=== PATIENT | female | born 1965 | race Caucasian/White ===

== ENCOUNTER 2016-10-06 03:10 | Emergency (ER) | payer MEDICAID, OTHER ==
[~2016-10-06] VITALS: Ht 157.5 cm; Wt 68.2 kg
[~2016-10-06 03:10] MED LIST: ADV250 IH; CARB200T6 PO; DIVA500T35 PO; FERSL PO; FOLI1TAB15 PO; HYDR-3965 PO; HYDR25TA PO; IPRAHFA IH; LEVE500T53 PO; MULT-12 PO; NAPR-58 PO; NORE1TAB56 PO; ONDA4 PO; PRED20TA3 PO; QUET200T PO; RISP1 PO; THEO200T39 PO
[2016-10-06] MEDS ORDERED: BUSP15 PO (03:43)
[2016-10-06] MEDS ORDERED: LISI-662 PO (03:43)
[2016-10-06] MEDS ORDERED: LAMO100 PO (03:43)
[2016-10-06 04:39] LABS: BASOPHILS % (AUTO) 0.4 % (0.0-2.0); EOSINOPHILS % (AUTO) 0.7 % (1.0-6.0); HEMATOCRIT 44.1 % (36-46); HEMOGLOBIN 14.2 g/dL (12.0-16.0); LYMPHOCYTES # (AUTO) 2.4 K/uL (1.0-4.8); LYMPHOCYTES % (AUTO) 31.2 % (22.0-44.0); MEAN CORPUSCULAR HEMOGLOBIN 30.2 pg (26.0-34.0); MEAN CORPUSCULAR HGB CONC 32.1 G/dL (31.0-37.0); MEAN CORPUSCULAR VOLUME 94 fL (80-100); MONOCYTES % (AUTO) 13.3 % (2.0-9.0); NEUTROPHILS # (AUTO) 4.2 K/uL (1.8-7.7); NEUTROPHILS % (AUTO) 54.4 % (40.0-70.0); PLATELET COUNT (AUTO) 256 K/uL (150-450); RED BLOOD CELL COUNT(AUTO) 4.69 MIL/uL (4.00-5.20); RED CELL DISTRIBUTION WIDTH 14.2 % (11.5-14.5); WHITE BLOOD COUNT (AUTO) 7.7 K/uL (4.5-11.0)
[2016-10-06 04:50] LABS: ANION GAP 9 mmol/L (8-16); CALCIUM, TOTAL 8.5 mg/dL (8.8-10.5); CARBON DIOXIDE 28 mmol/L (22-29); CHLORIDE 101 mmol/L (98-107); CREATININE 0.59 mg/dL (0.60-1.30); GLOMERULAR FILTR. RATE CALC > 60 mL/min (>60); POTASSIUM 4.3 mmol/L (3.5-5.1); SODIUM SERUM 138 mmol/L (136-145); UREA NITROGEN, BLOOD 13 mg/dL (7-18)
[2016-10-06 04:57] LABS: ALANINE AMINOTRANSFERASE 16 U/L (12-78); ALBUMIN 2.9 g/dL (3.4-5.0); ASPARTATE AMINOTRANSFERASE 17 U/L (15-37); BILIRUBIN,TOTAL 0.2 mg/dL (0.1-1.0); TOTAL PROTEIN, SERUM 6.7 g/dL (6.4-8.2); VALPROIC ACID 97 mcg/mL (50-100)
[2016-10-06] MEDS ORDERED: LevETIRAcetam 1,000 MG in DEXTROSE 5%-WATER 100 ML IV ONE (05:00)
[2016-10-06 05:12] LABS: APPEARANCE,URINE CLEAR (CLEAR); GLUCOSE, URINE (UA) NEGATIVE (NEGATIVE); KETONES,URINE NEGATIVE (NEGATIVE); LEUKOCYTE ESTERASE ,URINE NEGATIVE (NEGATIVE); OCCULT BLOOD,URINE TRACE (NEGATIVE); PROTEIN,URINE NEGATIVE (NEGATIVE)
[2016-10-06 05:16] LABS: ADD UA MICROSCOPIC YES
[2016-10-06 05:25] LABS: RBC,URINE 0-2 /HPF (0-2); SQUAMOUS EPITHELIAL CELL,UR Few /LPF (None Seen); WBC,URINE None Seen /HPF (0-5)
[2016-10-06 09:35] VITALS: BP 93/55
== END 2016-10-06 11:09 | disposition home or self-care (01) ==
LOC: EMS 03:11
DX: G40.909 Epilepsy, unspecified, not intractable, without status epilepticus (principal); S00.83XA Contusion of other part of head, initial encounter; W19.XXXA Unspecified fall, initial encounter; Y93.89 Activity, other specified; Y92.89 Other specified places as the place of occurrence of the external cause; Y99.8 Other external cause status
CPT/HCPCS: 36415; 70450; 73110; 80053; 80156; 80164; 81001; 85025; 93005; 96365; 99285; J0712; J7060

== ENCOUNTER 2017-04-17 15:45 | Emergency (ER) | payer OTHER ==
[~2017-04-17] VITALS: Ht 154.9 cm; Wt 65.9 kg
[~2017-04-17 15:45] MED LIST changes: +BUSP15 PO; -HYDR25TA PO; -IPRAHFA IH; +LAMO100 PO; +LISI-662 PO
[2017-04-17 17:11] LABS: BASOPHILS % (AUTO) 0.2 % (0.0-2.0); EOSINOPHILS % (AUTO) 0 % (1.0-6.0); HEMATOCRIT 39.8 % (36-46); HEMOGLOBIN 13.4 g/dL (12.0-16.0); LYMPHOCYTES # (AUTO) 1.2 K/uL (1.0-4.8); LYMPHOCYTES % (AUTO) 9.3 % (22.0-44.0); MEAN CORPUSCULAR HEMOGLOBIN 31.8 pg (26.0-34.0); MEAN CORPUSCULAR HGB CONC 33.7 G/dL (31.0-37.0); MEAN CORPUSCULAR VOLUME 94 fL (80-100); MONOCYTES # (AUTO) 1.5 K/uL (0.1-1.0); MONOCYTES % (AUTO) 12.4 % (2.0-9.0); NEUTROPHILS # (AUTO) 9.7 K/uL (1.8-7.7); NEUTROPHILS % (AUTO) 78.1 % (40.0-70.0); PLATELET COUNT (AUTO) 248 K/uL (150-450); RED BLOOD CELL COUNT(AUTO) 4.22 MIL/uL (4.00-5.20); RED CELL DISTRIBUTION WIDTH 14.5 % (11.5-14.5); WHITE BLOOD COUNT (AUTO) 12.4 K/uL (4.5-11.0)
[2017-04-17 17:26] LABS: ANION GAP 6 mmol/L (8-16); CALCIUM, TOTAL 8.8 mg/dL (8.8-10.5); CARBON DIOXIDE 28 mmol/L (22-29); CHLORIDE 97 mmol/L (98-107); CREATININE 0.67 mg/dL (0.60-1.30); GLOMERULAR FILTR. RATE CALC > 60 mL/min (>60); POTASSIUM 3.8 mmol/L (3.5-5.1); SODIUM SERUM 131 mmol/L (136-145); UREA NITROGEN, BLOOD 10 mg/dL (7-18)
[2017-04-17 17:34] LABS: ALANINE AMINOTRANSFERASE 15 U/L (12-78); ALBUMIN 3.5 g/dL (3.4-5.0); ASPARTATE AMINOTRANSFERASE 16 U/L (15-37); BILIRUBIN,TOTAL 0.2 mg/dL (0.1-1.0); TOTAL PROTEIN, SERUM 7.1 g/dL (6.4-8.2); VALPROIC ACID 40 mcg/mL (50-100)
[2017-04-17] MEDS ORDERED: LevETIRAcetam 1,000 MG in DEXTROSE 5%-WATER 100 ML IV ONE (20:30)
[2017-04-17 21:54] VITALS: BP 117/64
[2017-04-20 07:31] LABS: KEPPRA (LEVETIRACETAM) LEVEL 13.9 ug/mL (10.0-40.0)
[2017-04-20 12:48] LABS: LAMOTRIGINE (LAMICTAL) LEVEL 7.1 ug/mL (2.0-20.0)
== END 2017-04-17 22:25 | disposition home or self-care (01) ==
LOC: EMS 15:46
DX: G40.909 Epilepsy, unspecified, not intractable, without status epilepticus (principal); Z79.899 Other long term (current) drug therapy
CPT/HCPCS: 36415; 70450; 80053; 80156; 80164; 80175; 85025; 96365; 99285; G0482; J0712; J7060

== ENCOUNTER 2018-01-21 22:36 | Emergency (ER) | payer OTHER ==
[~2018-01-21] VITALS: Ht 147.3 cm; Wt 62.0 kg
[~2018-01-21 22:36] MED LIST changes: +FERR-89 PO; -FERSL PO; -HYDR-3965 PO; -LISI-662 PO; -MULT-12 PO; -NORE1TAB56 PO; -ONDA4 PO
[2018-01-21] MEDS ORDERED: MIRT15 PO (22:47)
[2018-01-22 00:26] LABS: APPEARANCE,URINE CLEAR (CLEAR); BILIRUBIN,URINE NEGATIVE (NEGATIVE); GLUCOSE, URINE (UA) NEGATIVE (NEGATIVE); KETONES,URINE NEGATIVE (NEGATIVE); LEUKOCYTE ESTERASE ,URINE NEGATIVE (NEGATIVE); NITRATE,URINE NEGATIVE (NEGATIVE); OCCULT BLOOD,URINE NEGATIVE (NEGATIVE); PH,URINE 5.5 (5.0-8.0); PROTEIN,URINE NEGATIVE (NEGATIVE); UROBILINOGEN,URINE 0.2 mg/dL (<=1.0)
[2018-01-22] MEDS ORDERED: SODIUM CHLORIDE 0.9% 1,000 ML IV ONE (00:30)
[2018-01-22 02:20] VITALS: BP 94/57
== END 2018-01-22 02:21 | disposition home or self-care (01) ==
LOC: EMS 22:38
DX: R40.0 Somnolence (principal); R53.1 Weakness; T43.595A Adverse effect of other antipsychotics and neuroleptics, initial encounter; F41.9 Anxiety disorder, unspecified; G61.0 Guillain-Barre syndrome; Y92.89 Other specified places as the place of occurrence of the external cause; Z79.899 Other long term (current) drug therapy
CPT/HCPCS: 96360; 99284

== ENCOUNTER 2018-02-04 10:25 | Inpatient (IN) | payer MEDICAID, OTHER ==
[~2018-02-04] VITALS: Ht 157.5 cm; Wt 60.1 kg
[~2018-02-04 10:25] MED LIST changes: +MIRT15 PO
[2018-02-04] MEDS ORDERED: LORazepam 1 MG TABLET PO ONE (11:00)
[2018-02-04 12:53] LABS: BASOPHILS % (AUTO) 0.5 % (0.0-2.0); EOSINOPHILS % (AUTO) 1.5 % (1.0-6.0); HEMATOCRIT 34.7 % (36-46); HEMOGLOBIN 11.8 g/dL (12.0-16.0); LYMPHOCYTES # (AUTO) 1.6 K/uL (1.0-4.8); LYMPHOCYTES % (AUTO) 25.6 % (22.0-44.0); MEAN CORPUSCULAR HEMOGLOBIN 30.6 pg (26.0-34.0); MEAN CORPUSCULAR HGB CONC 34.1 G/dL (31.0-37.0); MEAN CORPUSCULAR VOLUME 90 fL (80-100); MONOCYTES # (AUTO) 0.8 K/uL (0.1-1.0); MONOCYTES % (AUTO) 13.2 % (2.0-9.0); NEUTROPHILS # (AUTO) 3.7 K/uL (1.8-7.7); NEUTROPHILS % (AUTO) 59.2 % (40.0-70.0); PLATELET COUNT (AUTO) 205 K/uL (150-450); RED BLOOD CELL COUNT(AUTO) 3.87 MIL/uL (4.00-5.20); RED CELL DISTRIBUTION WIDTH 13.3 % (11.5-14.5)
[2018-02-04 13:18] LABS: ANION GAP 4 mmol/L (8-16); CALCIUM, TOTAL 8.7 mg/dL (8.8-10.5); CARBON DIOXIDE 30 mmol/L (22-29); CHLORIDE 107 mmol/L (98-107); CREATININE 0.51 mg/dL (0.60-1.30); GLOMERULAR FILTR. RATE CALC > 60 mL/min (>60); GLUCOSE,RANDOM 86 mg/dL (70-110); POTASSIUM 3.9 mmol/L (3.5-5.1); SODIUM SERUM 141 mmol/L (136-145); UREA NITROGEN, BLOOD 24 mg/dL (7-18)
[2018-02-04 13:26] LABS: ALANINE AMINOTRANSFERASE 22 U/L (12-78); ALBUMIN 3.1 g/dL (3.4-5.0); ALKALINE PHOSPHATASE 91 U/L (46-116); ASPARTATE AMINOTRANSFERASE 22 U/L (15-37); BILIRUBIN,TOTAL 0.3 mg/dL (0.1-1.0); TOTAL PROTEIN, SERUM 6.2 g/dL (6.4-8.2); VALPROIC ACID 43 mcg/mL (50-100)
[2018-02-04] MEDS ORDERED: QUEtiapine FUMARATE 100 MG TABLET PO PRN (15:45)
[2018-02-04] MEDS ORDERED: HALOPERIDOL 5 MG TABLET PO PRN (16:15)
[2018-02-04] MEDS ORDERED: QUEtiapine FUMARATE 200 MG TABLET PO SCH (21:00)
[2018-02-04] MEDS: OLANZapine 5 MG TABLET PO SCH (21:01)
[2018-02-04] MEDS: MIRTAZAPINE 15 MG TABLET PO SCH (21:01)
[2018-02-04] MEDS: BusPIRone HCL 15 MG TABLET PO SCH (21:40)
[2018-02-04 22:18] VITALS: BP 142/72
[2018-02-05 07:17] LABS: CHOL/HDL RATIO 2.4 (3.9-5.7)
[2018-02-05 08:50] VITALS: BP 131/100
[2018-02-05] MEDS: LevETIRAcetam 500 MG TABLET PO SCH ×2 (08:53→18:00)
[2018-02-05] MEDS: BusPIRone HCL 15 MG TABLET PO SCH ×2 (08:53→18:00)
[2018-02-05] MEDS: CarBAMazepine 200 MG TABLET PO SCH ×2 (08:55→18:00)
[2018-02-05] MEDS: OLANZapine 5 MG TABLET PO SCH ×2 (08:55→18:00)
[2018-02-05] MEDS: LISINOPRIL 20 MG TABLET PO SCH (08:55)
[2018-02-05] MEDS: LamoTRIgine 100 MG TABLET PO SCH ×2 (08:55→18:00)
[2018-02-05] MEDS ORDERED: QUEtiapine FUMARATE 100 MG TABLET PO SCH (09:00)
[2018-02-05] MEDS ORDERED: IBUPROFEN 400 MG TABLET PO PRN (16:15)
[2018-02-05] MEDS ORDERED: ACETAMINOPHEN 325 MG TABLET PO PRN (16:15)
[2018-02-05 20:06] VITALS: BP 113/66
[2018-02-05] MEDS: MIRTAZAPINE 15 MG TABLET PO SCH (20:24)
[2018-02-06] MEDS: FERROUS SULFATE 325 MG EC TABLET PO SCH (06:40)
[2018-02-06] MEDS: LISINOPRIL 20 MG TABLET PO SCH (09:22)
[2018-02-06] MEDS: FOLIC ACID 1 MG TABLET PO SCH (09:23)
[2018-02-06] MEDS: BusPIRone HCL 15 MG TABLET PO SCH ×2 (09:23→17:30)
[2018-02-06] MEDS: LamoTRIgine 100 MG TABLET PO SCH ×2 (09:23→17:30)
[2018-02-06] MEDS: CarBAMazepine 200 MG TABLET PO SCH ×2 (09:23→17:30)
[2018-02-06] MEDS: LevETIRAcetam 500 MG TABLET PO SCH ×2 (09:24→17:30)
[2018-02-06] MEDS: FLUTICASONE/VILANTEROL 200-25 MCG/INH INHALER [14] IH SCH (09:25)
[2018-02-06] MEDS: PredniSONE 20 MG TABLET PO SCH (09:26)
[2018-02-06] MEDS: OLANZapine 5 MG TABLET PO SCH ×2 (09:28→17:30)
[2018-02-06 10:24] VITALS: BP 109/53
[2018-02-06 20:11] VITALS: BP 116/67
[2018-02-06] MEDS: MIRTAZAPINE 15 MG TABLET PO SCH (20:57)
[2018-02-07] MEDS: FERROUS SULFATE 325 MG EC TABLET PO SCH (07:01)
[2018-02-07 08:32] VITALS: BP 145/76
[2018-02-07] MEDS: PredniSONE 20 MG TABLET PO SCH (08:38)
[2018-02-07] MEDS: BusPIRone HCL 15 MG TABLET PO SCH ×2 (08:38→17:19)
[2018-02-07] MEDS: LamoTRIgine 100 MG TABLET PO SCH ×2 (08:38→17:19)
[2018-02-07] MEDS: LevETIRAcetam 500 MG TABLET PO SCH ×2 (08:38→17:20)
[2018-02-07] MEDS: OLANZapine 5 MG TABLET PO SCH ×2 (08:38→17:20)
[2018-02-07] MEDS: CarBAMazepine 200 MG TABLET PO SCH ×2 (08:39→17:21)
[2018-02-07] MEDS: FOLIC ACID 1 MG TABLET PO SCH (08:39)
[2018-02-07] MEDS: FLUTICASONE/VILANTEROL 200-25 MCG/INH INHALER [14] IH SCH (08:40)
[2018-02-07] MEDS: LISINOPRIL 20 MG TABLET PO SCH (08:40)
[2018-02-07 16:26] VITALS: BP 112/67
[2018-02-07] MEDS: MIRTAZAPINE 15 MG TABLET PO SCH (20:44)
[2018-02-08] MEDS: FERROUS SULFATE 325 MG EC TABLET PO SCH (07:02)
[2018-02-08 08:10] VITALS: BP 128/60
[2018-02-08] MEDS: FLUTICASONE/VILANTEROL 200-25 MCG/INH INHALER [14] IH SCH (09:35)
[2018-02-08] MEDS: LISINOPRIL 20 MG TABLET PO SCH (09:36)
[2018-02-08] MEDS: CarBAMazepine 200 MG TABLET PO SCH ×2 (09:36→18:32)
[2018-02-08] MEDS: FOLIC ACID 1 MG TABLET PO SCH (09:36)
[2018-02-08] MEDS: LevETIRAcetam 500 MG TABLET PO SCH ×2 (09:36→18:31)
[2018-02-08] MEDS: PredniSONE 20 MG TABLET PO SCH (09:36)
[2018-02-08] MEDS: BusPIRone HCL 15 MG TABLET PO SCH ×2 (09:37→18:29)
[2018-02-08] MEDS: LamoTRIgine 100 MG TABLET PO SCH ×2 (09:37→18:30)
[2018-02-08] MEDS: OLANZapine 5 MG TABLET PO SCH ×2 (09:38→18:31)
[2018-02-08 16:00] VITALS: BP 122/64
[2018-02-08] MEDS: MIRTAZAPINE 15 MG TABLET PO SCH (20:10)
[2018-02-09 00:49] LABS: APPEARANCE,URINE CLEAR (CLEAR); BILIRUBIN,URINE NEGATIVE (NEGATIVE); GLUCOSE, URINE (UA) NEGATIVE (NEGATIVE); KETONES,URINE NEGATIVE (NEGATIVE); LEUKOCYTE ESTERASE ,URINE TRACE (NEGATIVE); NITRATE,URINE NEGATIVE (NEGATIVE); OCCULT BLOOD,URINE NEGATIVE (NEGATIVE); PH,URINE 6.5 (5.0-8.0); PROTEIN,URINE NEGATIVE (NEGATIVE); UROBILINOGEN,URINE 0.2 mg/dL (<=1.0)
[2018-02-09 00:53] LABS: AMPHET/METH SCREEN,URINE NEGATIVE (NEGATIVE); BARBITURATE SCREEN, URINE NEGATIVE (NEGATIVE); BENZODIAZEPINES SCREEN,URINE NEGATIVE (NEGATIVE); CANNABINOID SCREEN,URINE NEGATIVE (NEGATIVE); COCAINE SCREEN,URINE NEGATIVE (NEGATIVE); METHADONE SCREEN, URINE NEGATIVE (NEGATIVE); OPIATE SCREEN,URINE NEGATIVE (NEGATIVE)
[2018-02-09 00:54] LABS: PHENCYCLIDINE SCREEN,URINE NEGATIVE (NEGATIVE)
[2018-02-09 01:05] LABS: BACTERIA,URINE None Seen /HPF (None Seen); RBC,URINE None Seen /HPF (0-2); WBC,URINE 0-2 /HPF (0-5)
[2018-02-09] MEDS: LORazepam 2 MG TABLET PO PRN ×2 (02:11→18:10)
[2018-02-09] MEDS: ZOLPIDEM TARTRATE 10 MG TABLET PO PRN (02:12)
[2018-02-09 02:27] VITALS: BP 122/86
[2018-02-09] MEDS: FERROUS SULFATE 325 MG EC TABLET PO SCH (07:00)
[2018-02-09] MEDS: FLUTICASONE/VILANTEROL 200-25 MCG/INH INHALER [14] IH SCH (09:11)
[2018-02-09] MEDS: LevETIRAcetam 500 MG TABLET PO SCH ×2 (09:11→18:09)
[2018-02-09] MEDS: LISINOPRIL 20 MG TABLET PO SCH (09:12)
[2018-02-09] MEDS: FOLIC ACID 1 MG TABLET PO SCH (09:12)
[2018-02-09] MEDS: CarBAMazepine 200 MG TABLET PO SCH ×2 (09:12→18:11)
[2018-02-09] MEDS: PredniSONE 20 MG TABLET PO SCH (09:13)
[2018-02-09] MEDS: BusPIRone HCL 15 MG TABLET PO SCH ×2 (09:13→18:09)
[2018-02-09] MEDS: OLANZapine 5 MG TABLET PO SCH (09:13)
[2018-02-09] MEDS: LamoTRIgine 100 MG TABLET PO SCH ×2 (09:14→18:10)
[2018-02-09 13:01] VITALS: BP 100/60
[2018-02-09 16:30] VITALS: BP 102/63
[2018-02-09] MEDS: OLANZapine 7.5 MG TABLET PO SCH (18:10)
[2018-02-09] MEDS: MIRTAZAPINE 15 MG TABLET PO SCH (20:33)
[2018-02-10] MEDS: ZOLPIDEM TARTRATE 10 MG TABLET PO PRN ×2 (01:38→23:26)
[2018-02-10] MEDS: LORazepam 2 MG TABLET PO PRN ×2 (01:38→23:26)
[2018-02-10] MEDS: FERROUS SULFATE 325 MG EC TABLET PO SCH (06:46)
[2018-02-10 08:00] VITALS: BP 128/72
[2018-02-10] MEDS: FOLIC ACID 1 MG TABLET PO SCH (09:14)
[2018-02-10] MEDS: PredniSONE 20 MG TABLET PO SCH (09:14)
[2018-02-10] MEDS: LevETIRAcetam 500 MG TABLET PO SCH ×2 (09:14→16:35)
[2018-02-10] MEDS: CarBAMazepine 200 MG TABLET PO SCH ×2 (09:15→16:35)
[2018-02-10] MEDS: LamoTRIgine 100 MG TABLET PO SCH ×2 (09:15→16:35)
[2018-02-10] MEDS: LISINOPRIL 20 MG TABLET PO SCH (09:15)
[2018-02-10] MEDS: BusPIRone HCL 15 MG TABLET PO SCH ×2 (09:16→16:35)
[2018-02-10] MEDS: OLANZapine 7.5 MG TABLET PO SCH ×2 (09:16→16:35)
[2018-02-10] MEDS: FLUTICASONE/VILANTEROL 200-25 MCG/INH INHALER [14] IH SCH (09:18)
[2018-02-10 16:30] VITALS: BP 96/72
[2018-02-10 18:05] VITALS: BP 100/68
[2018-02-10] MEDS: MIRTAZAPINE 15 MG TABLET PO SCH (20:27)
[2018-02-11] MEDS: FERROUS SULFATE 325 MG EC TABLET PO SCH (07:02)
[2018-02-11] MEDS: PredniSONE 20 MG TABLET PO SCH (10:58)
[2018-02-11] MEDS: LevETIRAcetam 500 MG TABLET PO SCH ×2 (10:58→18:06)
[2018-02-11] MEDS: LISINOPRIL 20 MG TABLET PO SCH (10:58)
[2018-02-11] MEDS: FOLIC ACID 1 MG TABLET PO SCH (10:58)
[2018-02-11] MEDS: OLANZapine 7.5 MG TABLET PO SCH ×2 (10:58→18:06)
[2018-02-11] MEDS: LamoTRIgine 100 MG TABLET PO SCH ×2 (10:59→18:04)
[2018-02-11] MEDS: CarBAMazepine 200 MG TABLET PO SCH ×2 (10:59→18:07)
[2018-02-11] MEDS: BusPIRone HCL 15 MG TABLET PO SCH ×2 (11:01→18:04)
[2018-02-11] MEDS: FLUTICASONE/VILANTEROL 200-25 MCG/INH INHALER [14] IH SCH (11:01)
[2018-02-11 13:08] VITALS: BP 96/66
[2018-02-11 16:05] VITALS: BP 115/75
[2018-02-11] MEDS: LORazepam 2 MG TABLET PO PRN (18:06)
[2018-02-11 19:05] VITALS: BP 122/68
[2018-02-11 19:45] VITALS: BP 120/82
[2018-02-11] MEDS: MIRTAZAPINE 15 MG TABLET PO SCH (20:53)
[2018-02-11 21:45] VITALS: BP 118/68
[2018-02-12] MEDS: FERROUS SULFATE 325 MG EC TABLET PO SCH (07:03)
[2018-02-12] MEDS: FOLIC ACID 1 MG TABLET PO SCH (09:35)
[2018-02-12] MEDS: PredniSONE 20 MG TABLET PO SCH (09:35)
[2018-02-12] MEDS: OLANZapine 7.5 MG TABLET PO SCH ×2 (09:35→16:52)
[2018-02-12] MEDS: BusPIRone HCL 15 MG TABLET PO SCH ×2 (09:36→16:52)
[2018-02-12] MEDS: LISINOPRIL 20 MG TABLET PO SCH (09:36)
[2018-02-12] MEDS: CarBAMazepine 200 MG TABLET PO SCH ×2 (09:36→16:52)
[2018-02-12] MEDS: FLUTICASONE/VILANTEROL 200-25 MCG/INH INHALER [14] IH SCH (09:37)
[2018-02-12] MEDS: LamoTRIgine 100 MG TABLET PO SCH ×2 (09:37→16:51)
[2018-02-12] MEDS: LevETIRAcetam 250 MG TABLET PO SCH ×2 (09:44→16:51)
[2018-02-12 10:14] VITALS: BP 110/60
[2018-02-12 17:49] VITALS: BP 104/71
[2018-02-12] MEDS: MIRTAZAPINE 15 MG TABLET PO SCH (20:13)
[2018-02-12] MEDS: ZOLPIDEM TARTRATE 10 MG TABLET PO PRN (22:30)
[2018-02-13] MEDS: FERROUS SULFATE 325 MG EC TABLET PO SCH (06:36)
[2018-02-13] MEDS: LevETIRAcetam 250 MG TABLET PO SCH ×2 (08:37→17:01)
[2018-02-13] MEDS: FOLIC ACID 1 MG TABLET PO SCH (08:37)
[2018-02-13] MEDS: LISINOPRIL 20 MG TABLET PO SCH (08:37)
[2018-02-13] MEDS: PredniSONE 20 MG TABLET PO SCH (08:37)
[2018-02-13] MEDS: FLUTICASONE/VILANTEROL 200-25 MCG/INH INHALER [14] IH SCH (08:37)
[2018-02-13] MEDS: CarBAMazepine 200 MG TABLET PO SCH ×2 (08:38→16:11)
[2018-02-13] MEDS: OLANZapine 7.5 MG TABLET PO SCH ×2 (08:38→16:11)
[2018-02-13] MEDS: BusPIRone HCL 15 MG TABLET PO SCH ×2 (08:38→16:10)
[2018-02-13] MEDS: LamoTRIgine 100 MG TABLET PO SCH ×2 (08:38→16:11)
[2018-02-13 08:39] VITALS: BP 124/72
[2018-02-13 16:35] VITALS: BP 142/61
[2018-02-13] MEDS: ZOLPIDEM TARTRATE 10 MG TABLET PO PRN (20:08)
[2018-02-13] MEDS: MIRTAZAPINE 15 MG TABLET PO SCH (20:08)
[2018-02-13] MEDS ORDERED: LevETIRAcetam 500 MG TABLET PO SCH (21:00)
[2018-02-13] MEDS ORDERED: PHENYTOIN 100 MG/4 ML SUSPENSION UDCUP PO SCH (21:00)
[2018-02-14] MEDS: FERROUS SULFATE 325 MG EC TABLET PO SCH (07:05)
[2018-02-14 08:46] VITALS: BP 107/76
[2018-02-14] MEDS: FLUTICASONE/VILANTEROL 200-25 MCG/INH INHALER [14] IH SCH (08:54)
[2018-02-14] MEDS: CarBAMazepine 200 MG TABLET PO SCH ×2 (08:55→16:49)
[2018-02-14] MEDS: LevETIRAcetam 500 MG TABLET PO SCH ×2 (08:55→16:48)
[2018-02-14] MEDS: LISINOPRIL 20 MG TABLET PO SCH (08:56)
[2018-02-14] MEDS: PredniSONE 20 MG TABLET PO SCH (08:56)
[2018-02-14] MEDS: OLANZapine 7.5 MG TABLET PO SCH ×2 (08:57→16:49)
[2018-02-14] MEDS: FOLIC ACID 1 MG TABLET PO SCH (08:57)
[2018-02-14] MEDS: BusPIRone HCL 15 MG TABLET PO SCH ×2 (08:57→16:47)
[2018-02-14] MEDS: LamoTRIgine 100 MG TABLET PO SCH ×2 (08:58→16:48)
[2018-02-14 16:17] VITALS: BP 113/64
[2018-02-14] MEDS: MIRTAZAPINE 15 MG TABLET PO SCH (21:07)
[2018-02-15] MEDS: ZOLPIDEM TARTRATE 10 MG TABLET PO PRN (00:58)
[2018-02-15 01:26] VITALS: BP 111/67
[2018-02-15] MEDS: FERROUS SULFATE 325 MG EC TABLET PO SCH ×2 (07:03→07:05)
[2018-02-15] MEDS: BusPIRone HCL 15 MG TABLET PO SCH (08:01)
[2018-02-15] MEDS: LamoTRIgine 100 MG TABLET PO SCH (08:01)
[2018-02-15] MEDS: FLUTICASONE/VILANTEROL 200-25 MCG/INH INHALER [14] IH SCH (08:01)
[2018-02-15] MEDS: LevETIRAcetam 500 MG TABLET PO SCH (08:06)
[2018-02-15] MEDS: PredniSONE 20 MG TABLET PO SCH (08:06)
[2018-02-15] MEDS: FOLIC ACID 1 MG TABLET PO SCH (08:07)
[2018-02-15] MEDS: LISINOPRIL 20 MG TABLET PO SCH (08:07)
[2018-02-15] MEDS: CarBAMazepine 200 MG TABLET PO SCH (08:07)
[2018-02-15] MEDS: OLANZapine 7.5 MG TABLET PO SCH (08:07)
[2018-02-15 08:08] VITALS: BP 118/57
[2018-02-15] MEDS ORDERED: FLUT1BLS IH (14:13)
[2018-02-15] MEDS ORDERED: LISI-662 PO (14:15)
[2018-02-15] MEDS ORDERED: OLAN7.5T2 PO (14:18)
== END 2018-02-15 15:40 | DRG 750 ==
LOC: EMS 10:27 → 3EC 19:16
PROVIDERS: ADMIT Psychiatry & Neurology Psychiatry; ATTEND Psychiatry & Neurology Psychiatry
DX: F25.1 Schizoaffective disorder, depressive type (principal); G61.0 Guillain-Barre syndrome; E88.09 Other disorders of plasma-protein metabolism, not elsewhere classified; G40.409 Other generalized epilepsy and epileptic syndromes, not intractable, without status epilepticus; F70 Mild intellectual disabilities; D64.9 Anemia, unspecified; F41.9 Anxiety disorder, unspecified; J44.9 Chronic obstructive pulmonary disease, unspecified; Z79.899 Other long term (current) drug therapy; Z91.5 Personal history of self-harm
CPT/HCPCS: 84443; 87081; 99285; G0480; G0482

== ENCOUNTER 2018-11-03 11:59 | Emergency (ER) | payer MEDICAID, OTHER ==
[~2018-11-03] VITALS: Ht 162.6 cm; Wt 58.2 kg
[~2018-11-03 11:59] MED LIST changes: -ADV250 IH; -DIVA500T35 PO; +FLUT1BLS IH; +LISI-662 PO; -NAPR-58 PO; +OLAN7.5T2 PO; -QUET200T PO; -RISP1 PO; -THEO200T39 PO
[2018-11-03] MEDS ORDERED: IBUPROFEN 600 MG TABLET PO ONE (12:15)
[2018-11-03 12:21] LABS: BASOPHILS % (AUTO) 0.4 % (0.0-2.0); EOSINOPHILS % (AUTO) 1.6 % (1.0-6.0); HEMATOCRIT 38.1 % (36-46); HEMOGLOBIN 12.9 g/dL (12.0-16.0); LYMPHOCYTES % (AUTO) 26.6 % (22.0-44.0); MEAN CORPUSCULAR HEMOGLOBIN 28.8 pg (26.0-34.0); MEAN CORPUSCULAR HGB CONC 33.9 G/dL (31.0-37.0); MEAN CORPUSCULAR VOLUME 85 fL (80-100); MONOCYTES # (AUTO) 0.6 K/uL (0.1-1.0); MONOCYTES % (AUTO) 8.5 % (2.0-9.0); NEUTROPHILS # (AUTO) 4.6 K/uL (1.8-7.7); NEUTROPHILS % (AUTO) 62.9 % (40.0-70.0); PLATELET COUNT (AUTO) 281 K/uL (150-450); RED BLOOD CELL COUNT(AUTO) 4.48 MIL/uL (4.00-5.20); RED CELL DISTRIBUTION WIDTH 13.4 % (11.5-14.5)
[2018-11-03] MEDS ORDERED: THEO400T3 PO (12:29)
[2018-11-03] MEDS ORDERED: CLIN1KIT TP (12:29)
[2018-11-03] MEDS ORDERED: DIVA-78 PO (12:29)
[2018-11-03] MEDS ORDERED: NORE1TAB4 PO (12:29)
[2018-11-03] MEDS ORDERED: ADV100 IH (12:29)
[2018-11-03] MEDS ORDERED: IPRAHFA IH (12:29)
[2018-11-03] MEDS ORDERED: PHEN100C23 PO (12:29)
[2018-11-03] MEDS ORDERED: RISP1 PO (12:29)
[2018-11-03] MEDS ORDERED: HYDR25TA PO (12:29)
[2018-11-03] MEDS ORDERED: NAPR-58 PO (12:29)
[2018-11-03] MEDS ORDERED: QUET200T PO (12:29)
[2018-11-03 12:52] LABS: ANION GAP 9 mmol/L (8-16); CALCIUM, TOTAL 9.3 mg/dL (8.8-10.5); CARBON DIOXIDE 28 mmol/L (22-29); CHLORIDE 100 mmol/L (98-107); GLOMERULAR FILTR. RATE CALC > 60 mL/min (>60); GLUCOSE,RANDOM 96 mg/dL (70-110); POTASSIUM 4.1 mmol/L (3.5-5.1); SODIUM SERUM 137 mmol/L (136-145); UREA NITROGEN, BLOOD 16 mg/dL (7-18)
[2018-11-03 12:59] LABS: ALANINE AMINOTRANSFERASE 15 U/L (12-78); ALBUMIN 3.4 g/dL (3.4-5.0); ALKALINE PHOSPHATASE 195 U/L (46-116); ASPARTATE AMINOTRANSFERASE 14 U/L (15-37); BILIRUBIN,TOTAL 0.2 mg/dL (0.1-1.0)
[2018-11-03 13:24] LABS: VALPROIC ACID < 3 mcg/mL (50-100)
[2018-11-03] MEDS ORDERED: VALPROATE SODIUM 1,000 MG in DEXTROSE 5%-WATER 100 ML IV ONE (14:15)
[2018-11-03 14:34] LABS: PHENYTOIN (DILANTIN) 1.1 mcg/mL (10.0-20.0)
[2018-11-03] MEDS ORDERED: PHENYTOIN SODIUM 1,000 MG in SODIUM CHLORIDE 0.9% 150 ML IV ONE (14:45)
[2018-11-03 18:30] VITALS: BP 121/51
== END 2018-11-03 18:40 | disposition home or self-care (01) ==
LOC: EMS 12:00
DX: S00.531A Contusion of lip, initial encounter (principal); G40.909 Epilepsy, unspecified, not intractable, without status epilepticus; F41.9 Anxiety disorder, unspecified; Z79.899 Other long term (current) drug therapy; W19.XXXA Unspecified fall, initial encounter; Y93.89 Activity, other specified; Y92.89 Other specified places as the place of occurrence of the external cause; Y99.8 Other external cause status
CPT/HCPCS: 36415; 80053; 80156; 80164; 80185; 85025; 96365; 96367; 99283; J1165; J3490; J7050; J7060

== ENCOUNTER 2019-10-17 16:54 | Emergency (ER) | payer OTHER ==
[~2019-10-17] VITALS: Ht 154.9 cm; Wt 67.2 kg
[~2019-10-17 16:54] MED LIST changes: +ADV100 IH; -BUSP15 PO; +CLIN1KIT TP; +DIVA-78 PO; -FLUT1BLS IH; +HYDR-1475 PO; +IPRAHFA IH; -LISI-662 PO; -MIRT15 PO; +NAPR-1025 PO; +NORE1TAB4 PO; -OLAN7.5T2 PO; +PHEN100C23 PO; -PRED20TA3 PO; +QUET200T PO; +RISP1 PO; +THEO400T3 PO
[2019-10-17] MEDS ORDERED: SLOWK8 PO (18:12)
[2019-10-17] MEDS ORDERED: PRED20 PO (18:12)
[2019-10-17] MEDS ORDERED: OLAN7.5T2 PO (18:12)
[2019-10-17] MEDS ORDERED: MIRT-92 PO (18:12)
[2019-10-17] MEDS ORDERED: LISI-662 PO (18:12)
[2019-10-17] MEDS ORDERED: LORazepam 2 MG TABLET PO ONE (18:30)
[2019-10-17] MEDS ORDERED: FOLI1 PO (18:33)
[2019-10-17] MEDS ORDERED: QUET100T PO (18:33)
[2019-10-17 18:43] LABS: BASOPHILS % (AUTO) 0.4 % (0.0-2.0); EOSINOPHILS % (AUTO) 1.7 % (1.0-6.0); HEMATOCRIT 40.4 % (36-46); HEMOGLOBIN 13.4 g/dL (12.0-16.0); LYMPHOCYTES # (AUTO) 2.1 K/uL (1.0-4.8); LYMPHOCYTES % (AUTO) 21.4 % (22.0-44.0); MEAN CORPUSCULAR HEMOGLOBIN 28.8 pg (26.0-34.0); MEAN CORPUSCULAR HGB CONC 33.3 G/dL (31.0-37.0); MEAN CORPUSCULAR VOLUME 86 fL (80-100); MONOCYTES # (AUTO) 0.9 K/uL (0.1-1.0); MONOCYTES % (AUTO) 8.9 % (2.0-9.0); NEUTROPHILS # (AUTO) 6.6 K/uL (1.8-7.7); NEUTROPHILS % (AUTO) 67.6 % (40.0-70.0); PLATELET COUNT (AUTO) 312 K/uL (150-450); RED BLOOD CELL COUNT(AUTO) 4.68 MIL/uL (4.00-5.20); RED CELL DISTRIBUTION WIDTH 12.9 % (11.5-14.5)
[2019-10-17 18:45] LABS: ANION GAP 8 mmol/L (8-16); CALCIUM, TOTAL 9.6 mg/dL (8.8-10.5); CARBON DIOXIDE 27 mmol/L (22-29); CHLORIDE 103 mmol/L (98-107); CREATININE 0.51 mg/dL (0.60-1.30); GLOMERULAR FILTR. RATE CALC > 60 mL/min (>60); GLUCOSE,RANDOM 100 mg/dL (70-110); POTASSIUM 4.1 mmol/L (3.5-5.1); SODIUM SERUM 138 mmol/L (136-145); UREA NITROGEN, BLOOD 11 mg/dL (7-18)
[2019-10-17 19:02] LABS: ALANINE AMINOTRANSFERASE 20 U/L (12-78); ALBUMIN 3.5 g/dL (3.4-5.0); ALKALINE PHOSPHATASE 195 U/L (46-116); ASPARTATE AMINOTRANSFERASE 10 U/L (15-37); BILIRUBIN,TOTAL 0.1 mg/dL (0.1-1.0); CARBAMAZEPINE (TEGRETOL) 8.5 mcg/mL (4.0-12.0); TOTAL PROTEIN, SERUM 7.1 g/dL (6.4-8.2)
[2019-10-17 19:03] LABS: VALPROIC ACID < 3 mcg/mL (50-100)
[2019-10-17 19:22] VITALS: BP 96/60
== END 2019-10-17 20:20 | disposition home or self-care (01) ==
LOC: EMS 16:54
DX: F41.9 Anxiety disorder, unspecified (principal); Z79.899 Other long term (current) drug therapy
CPT/HCPCS: 36415; 80053; 80156; 80164; 85025; 99283; G0480

== ENCOUNTER 2020-10-18 09:51 | Emergency (ER) | payer OTHER ==
[~2020-10-18] VITALS: Ht 152.4 cm; Wt 65.9 kg
[~2020-10-18 09:51] MED LIST changes: -ADV100 IH; +DIVA-112 PO; -DIVA-78 PO; +FLUT1DIS4 IH; +FOLI-130 PO; -FOLI1TAB15 PO; -HYDR-1475 PO; +HYDR25TA2 PO; +LISI-894 PO; +MIRT-89 PO; +OLAN7.5T2 PO; +POTA8TAB53 PO; +PRED20 PO; +QUET100T PO; -QUET200T PO; -RISP1 PO; +RISP1TAB48 PO
[2020-10-18] MEDS ORDERED: FAMOTIDINE 10 MG/ML 2 ML VIAL IVP ONE (10:15)
[2020-10-18] MEDS ORDERED: PB/HYOSCY/ATR/SCOP/LIDO/MAALOX 55 ML BOTTLE PO ONE (10:15)
[2020-10-18 11:51] LABS: APPEARANCE,URINE CLOUDY (CLEAR); BILIRUBIN,URINE NEGATIVE (NEGATIVE); GLUCOSE, URINE (UA) NEGATIVE (NEGATIVE); KETONES,URINE NEGATIVE (NEGATIVE); LEUKOCYTE ESTERASE ,URINE NEGATIVE (NEGATIVE); NITRATE,URINE NEGATIVE (NEGATIVE); OCCULT BLOOD,URINE NEGATIVE (NEGATIVE); PH,URINE 7.5 (5.0-8.0); PROTEIN,URINE NEGATIVE (NEGATIVE); UROBILINOGEN,URINE 0.2 mg/dL (<=1.0)
[2020-10-18 12:00] LABS: AMORPHOUS SEDIMENT,UR Moderate /LPF (None Seen); BACTERIA,URINE None Seen /HPF (None Seen); RBC,URINE None Seen /HPF (0-2); SQUAMOUS EPITHELIAL CELL,UR Few /LPF (None Seen); WBC,URINE None Seen /HPF (0-5)
[2020-10-18 12:02] LABS: GLUCOSE,POINT OF CARE 128 MG/DL (70-110)
[2020-10-18 12:06] LABS: ANION GAP 11 mmol/L (8-16); CALCIUM, TOTAL 9.5 mg/dL (8.8-10.5); CARBON DIOXIDE 25 mmol/L (22-29); CHLORIDE 98 mmol/L (98-107); CREATININE 0.43 mg/dL (0.60-1.30); GLOMERULAR FILTR. RATE CALC > 60 mL/min (>60); GLUCOSE,RANDOM 143 mg/dL (70-110); POTASSIUM 3.8 mmol/L (3.5-5.1); SODIUM SERUM 134 mmol/L (136-145); UREA NITROGEN, BLOOD 13 mg/dL (7-18)
[2020-10-18 12:14] LABS: BASOPHILS % (AUTO) 0.3 % (0.0-2.0); EOSINOPHILS % (AUTO) 0 % (1.0-6.0); HEMATOCRIT 39.1 % (36-46); HEMOGLOBIN 12.8 g/dL (12.0-16.0); LYMPHOCYTES # (AUTO) 0.7 K/uL (1.0-4.8); LYMPHOCYTES % (AUTO) 7.3 % (22.0-44.0); MEAN CORPUSCULAR HEMOGLOBIN 27.6 pg (26.0-34.0); MEAN CORPUSCULAR HGB CONC 32.7 G/dL (31.0-37.0); MEAN CORPUSCULAR VOLUME 84 fL (80-100); MONOCYTES # (AUTO) 0.1 K/uL (0.1-1.0); MONOCYTES % (AUTO) 1.2 % (2.0-9.0); NEUTROPHILS # (AUTO) 9.2 K/uL (1.8-7.7); PLATELET COUNT (AUTO) 388 K/uL (150-450); RED BLOOD CELL COUNT(AUTO) 4.64 MIL/uL (4.00-5.20); RED CELL DISTRIBUTION WIDTH 13.5 % (11.5-14.5)
[2020-10-18 12:24] LABS: NEUTROPHILS % (AUTO) 91.2 % (40.0-70.0)
[2020-10-18 12:27] LABS: ALANINE AMINOTRANSFERASE 16 U/L (12-78); ALBUMIN 3.7 g/dL (3.4-5.0); ALKALINE PHOSPHATASE 162 U/L (46-116); ASPARTATE AMINOTRANSFERASE 16 U/L (15-37); LIPASE 129 U/L (73-393); TOTAL PROTEIN, SERUM 7.7 g/dL (6.4-8.2)
[2020-10-18 12:47] LABS: BILIRUBIN,TOTAL 0.1 mg/dL (0.1-1.0)
[2020-10-18 16:14] VITALS: BP 106/66
== END 2020-10-18 16:19 | disposition home or self-care (01) ==
LOC: EMS 09:51
DX: G40.909 Epilepsy, unspecified, not intractable, without status epilepticus (principal); H53.2 Diplopia; Z79.899 Other long term (current) drug therapy
CPT/HCPCS: 36415; 70450; 71045; 80053; 81001; 82962; 83690; 84484; 85025; 93005; 96374; 99285; J3490; 82948

== ENCOUNTER 2021-04-20 21:40 | Emergency (ER) | payer OTHER ==
[~2021-04-20] VITALS: Ht 154.9 cm; Wt 60.0 kg
[~2021-04-20 21:40] MED LIST changes: +ALBU8.5H8 IH; +BUSP15 PO; -CLIN1KIT TP; +CLOT15CR73 TP; -DIVA-112 PO; -FERR-89 PO; -FLUT1DIS4 IH; -FOLI-130 PO; -HYDR25TA2 PO; +IPRA4AER IH; -LAMO100 PO; +LAMO25TA25 PO; -LISI-894 PO; +LORA-1000 PO; +LORA-999 PO; -NORE1TAB4 PO; +OLAN10TA74 PO; -OLAN7.5T2 PO; -PHEN100C23 PO; -POTA8TAB53 PO; -PRED20 PO; -QUET100T PO; -RISP1TAB48 PO; -THEO400T3 PO; +ZINC10OI TP
[2021-04-20 21:50] VITALS: BP 70/40
== END 2021-04-21 04:15 ==
LOC: EMS 21:41
DX: I46.9 Cardiac arrest, cause unspecified (principal)
CPT/HCPCS: 99285; Z7502